=== PATIENT | male | born 1990 | race Hispanic/Latino ===

== ENCOUNTER 2019-09-23 21:47 | Emergency (ER) | payer OTHER, SELFPAY ==
[2019-09-23 22:02] VITALS: BP 168/94; PULSE 107; RESP 20; TEMP 36.9; O2SAT 99; BMI 33.3
[2019-09-24] MEDS: OXYCODONE/ACETAMINOPHEN 5/325 TABLET 2 TAB PO (00:58)
[2019-09-24] MEDS: OXYCODONE/APAP 5/325 PREPACK 1 BOTTLE MISC (00:58)
[2019-09-24 00:59] VITALS: BP 134/84; PULSE 94; RESP 16; TEMP 36.7; O2SAT 99
[2019-09-24] MEDS: dexAMETHasone 4 MG TABLET 10 MG PO (00:59)
[2019-09-24] MEDS: KETOROLAC 60 MG/2 ML VIAL 30 MG IM (00:59)
--- NOTE | 2019-09-24 06:51 | ED_ITS ---
HPI - Back Pain/Injury General Chief Complaint: Back Pain/Injury Stated Complaint: LOWER BACK PAIN Time Seen by Provider: 09/24/19 00:26 Source: patient History of Present Illness HPI Narrative: 29-year-old otherwise healthy gentleman who works for [employer]. A week and a half ago he strained his low back lifting twisting and bending with packages while at work. Seem that he was healing until yesterday when he went to step up onto a bench in the truck it was wet, he slipped and stretched groin and legs and pulling back muscles more. Over the ensuing 24 hours he is developing increasing pain across his low back and radicular symptoms down the right leg worse with movement. He describes no change to bowel or bladder habits and no difficulty with urinating. No perineal numbness. Related Data Previous Rx's Medication Instructions Recorded dexamethasone [Decadron] 10 mg PO DAILY #5 tab 09/24/19 oxycodone-acetaminophen 1 tab PO Q6H PRN #10 tab 09/24/19 Allergies Allergy/AdvReac Type Severity Reaction Status Date / Time No Known Drug Allergies Allergy Verified 09/23/19 22:09 Review of Systems Review of Systems Narrative: Pertinent positive and negative findings as per HPI Remainder of review of systems is otherwise unremarkable for Constitutional: Fevers, chills, weakness ENT: No sore throat, neck pain, ear pain CV: Chest pain, palpitations, dyspnea on exertion Respiratory: Cough, wheeze, dyspnea GI: Nausea, vomiting, diarrhea, : Dysuria, hematuria, flank pain Skin: Rashes, nonhealing lesions Neuro: Syncope, dizziness, tingling Psych: Depression, anxiety, suicidal ideation Patient History Medical History (Updated 09/24/19 @ 06:55 by Marlen Rosales MD) Healthy adult (Acute) Social History Smoking Status: Never smoker Smoking Status: Never smoker alcohol intake frequency: 0-2 drinks per day Substance Use Type: does not use Exam Narrative Exam Narrative: General: Healthy appearing, in in moderate amount of pain Able to give a complete and coherent history. Well-nourished well-developed Respiratory: Lungs are clear to auscultation, no wheezing no rales no rhonchi. Full and symmetrical air movement Cardiac: Regular rate and rhythm no murmurs no bruits Abdomen: Soft nontender good bowel tones, no flank pain Skin: Warm and dry, no rashes Neurologic: Grossly neurologically intact with no obvious asymmetries or abnormalities. He is able to get up and off the bed with minimal difficulty. He has decreased sensation in the entire right lower extremity from the groin down that is not in dermatomal distribution. Full and symmetrical strength in both lower extremities with normal reflexes (2+) bilateral patellas and ankle jerks. Extremities: No trauma, well perfused Psych: Cooperative, appropriate insight and affect Initial Vital Signs Initial Vital Signs: Vital Signs Temperature 98.4 F 09/23/19 22:02 Pulse Rate 107 H 09/23/19 22:02 Respiratory Rate 20 09/23/19 22:02 Blood Pressure 168/94 H 09/23/19 22:02 Pulse Oximetry 99 09/23/19 22:02 Course Orders Ordered: Discontinued Medications Dexamethasone (Decadron) 10 mg PO NOW ONE Stop: 09/24/19 00:49 Last Admin: 09/24/19 00:59 Dose: 10 mg Documented by: ADELINA Ketorolac Tromethamine (Toradol) 30 mg IM NOW ONE Stop: 09/24/19 00:49 Last Admin: 09/24/19 00:59 Dose: 30 mg Documented by: ADELINA Oxycodone/Acetaminophen (Endocet 5/325 Prepack) 1 bottle MISC SEEINSTR ONE Stop: 09/24/19 00:49 Last Admin: 09/24/19 00:58 Dose: 1 bottle Documented by: ADELINA Oxycodone/Acetaminophen (Percocet 5/325) 2 tab PO NOW ONE Stop: 09/24/19 00:49 Last Admin: 09/24/19 00:58 Dose: 2 tab Documented by: ADELINA Vital Signs Vital signs: Vital Signs - 8 hr 09/24/19 00:59 Temperature 98.1 F Pulse Rate 94 H Respiratory Rate 16 Blood Pressure [Left Arm] 134/84 Pulse Oximetry 99 MDM - Back Pain/Injury Medical Records Attestation: I reviewed the patient's medical records. Lab Data Labs: Urine Dip Bedside Urine Glucose Negative Bedside Urine Bilirubin - Negative Bedside Urine Ketone - Negative Urine Specific [place] 1.025 Bedside Urine Occult Blood - Negative Bedside Urine pH 6.5 Bedside Urine Protein - Negative Bedside Urine Urobilinogen - Negative Bedside Urine Nitrite - Negative Bedside Urine Leukocytes - Negative Esterase MDM Narrative Medical decision making narrative: 29-year-old gentleman with initial musculoskeletal back strain approximately 1 and half weeks ago suffered while at work. Seem to be recovering nicely we had an acute injury yesterday with worsening pain in the low back and now radicular pain down the back of his leg. No change to bowel or bladder habits or perineal numbness or other additional signs of cauda equina syndrome or acute disc pathology. Because his job consists of lifting bending and twisting have recommended 4 days of rest with gentle activity, nonsteroidals 3 days of steroids and a brief up to 48 hours of narcotic supplementation with nonsteroidal pain control. He is safe for home discharge at this time Discharge Plan Departure Patient Disposition: Home Clinical Impression: Strain of lumbar region Qualifiers: Encounter type: initial encounter Qualified Code(s): S39.012A - Strain of muscle, fascia and tendon of lower back, initial encounter Sciatica Qualifiers: Laterality: right Qualified Code(s): M54.31 - Sciatica, right side Discharge Date/Time: 09/24/19 01:26 Instructions: DI for Back Strain or Sprain Activity Restrictions/Additional Instructions: Thank you for coming in tonight I am sorry you injured yourself. In the emergency room, you are giving a shot of Toradol and to Percocet pain pills as well as 10 mg of oral Decadron, a steroid. I am going to suggest that you do not return to work for at least 4 more days, so returning on September 27. Please do make point of getting up and walking around however avoiding twisting, turning and bending for 4 days will help you heal a bit more quickly Using 400 mg of ibuprofen (2 hjwn-vrx-elitliu pills) and 1 Tylenol every 6 hours can be very helpful in controlling pain. For severe pain, you can use 400 mg of ibuprofen and 1 Percocet. I am also going to suggest that you complete 3 days of Decadron, steroid, to reduce the swelling and inflammation that is causing part of your pain and the numbness down your right leg. If you are continuing to have severe symptoms or you feel that they are getting worse, will need to follow-up with your primary care physician. I hope that you heal quickly and completely. Prescriptions: New dexamethasone [Decadron] 4 mg tablet 10 mg PO DAILY Qty: 5 RF: 0 oxycodone-acetaminophen 5-325 mg tablet 1 tab PO Q6H PRN (Reason: pain) Qty: 10 RF: 0 Stand Alone Forms: Work Release Note
== END 2019-09-24 01:26 | disposition home or self-care (01) ==
PROVIDERS: Emergency Provider Emergency Medicine
DX: S39.012A Strain of muscle, fascia and tendon of lower back, initial encounter (principal); M54.31 Sciatica, right side; X50.0XXA Overexertion from strenuous movement or load, initial encounter; Y99.0 Civilian activity done for income or pay
CPT/HCPCS: 81003; 96372; 99283; 99284; J1885

== ENCOUNTER 2021-03-01 21:46 | Emergency (ER) | payer OTHER, MEDICAID, SELFPAY ==
[2021-03-01 21:52] VITALS: BP 147/80; PULSE 118; RESP 20; TEMP 37.2; O2SAT 99
[2021-03-01 23:08] VITALS: BP 130/60; PULSE 101; O2SAT 97
[2021-03-02] MEDS: IBUPROFEN 400 MG TABLET PO (00:05)
[2021-03-02] MEDS: ACETAMINOPHEN 325 MG TABLET PO (00:05)
[2021-03-02 00:15] VITALS: BP 128/73; PULSE 90; RESP 18; O2SAT 99
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
== END 2021-03-02 00:15 | disposition home or self-care (01) ==
PROVIDERS: Emergency Provider Emergency Medicine
DX: S16.1XXA Strain of muscle, fascia and tendon at neck level, initial encounter (principal); S20.312A Abrasion of left front wall of thorax, initial encounter; V89.2XXA Person injured in unspecified motor-vehicle accident, traffic, initial encounter
CPT/HCPCS: 99282; 99283

== ENCOUNTER 2021-03-08 06:57 | Emergency (ER) | payer OTHER, MEDICAID, SELFPAY ==
[2021-03-08 07:42] VITALS: BP 133/73; PULSE 106; RESP 24; TEMP 36.8; O2SAT 99; BMI 31.9
[2021-03-08 07:56] LABS: Add Manual Diff / Slide Review NO; Basophils Absolute Auto 100 /uL (0-100); Basophils Percent Auto 0.7 % (0-2); Eosinophils Absolute Auto 0 /uL (0-450); Hematocrit 41.4 % (41-53); Hemoglobin 13.7 g/dL (13.5-17.5); Lymphocytes Absolute Auto 1000 /uL (1100-4500); Lymphocytes Percent Auto 13.4 % (25-40); Mean Corpuscular HGB Conc 33.1 % (30-36); Mean Corpuscular Hemoglobin 27.9 PG (26-34); Mean Corpuscular Volume 84.4 fL (80-100); Monocytes Absolute Auto 800 /uL (0-900); Monocytes Percent Auto 10.7 % (3-14); Neutrophils Absolute Auto 5800 /uL (1500-7000); Neutrophils Percent Auto 75.2 % (50-75); Platelet Count 266 X10^3/uL (150-400); Red Blood Cell Count 4.91 X10^6/uL (4.5-5.9); Red Cell Distribution Width 12.8 % (11.6-14.8); White Blood Cell Count 7.7 X10^3/uL (4.5-11.0)
[2021-03-08] MEDS: SODIUM CHLORIDE 0.9% 1,000 ML 250 ML IV (08:03)
[2021-03-08 08:04] VITALS: BP 131/75; PULSE 96; O2SAT 97
[2021-03-08 08:11] LABS: Alanine Aminotransferase 40 IU/L (<50); Albumin 4.6 g/dL (3.5-5.0); Albumin Globulin Ratio 1.4 (1.0-2.8); Alkaline Phosphatase 61 U/L (38-126); Aspartate Aminotransferase 39 IU/L (17-59); Bilirubin Total 0.3 mg/dL (0.2-1.3); Blood Urea Nitrogen 19 mg/dL (9-20); Calcium 9.2 mg/dL (8.4-10.2); Carbon Dioxide 27 mmol/L (22-32); Chloride 102 mmol/L (98-107); Estimated Glomerular Filt Rate > 60.0 mL/min (>60); Globulin 3.4 g/dL (1.7-4.1); Glucose 128 mg/dL (70-100); HEMOLYSIS < 15 (0-50); Lipase 46 U/L (23-300); Sodium 137 mmol/L (137-145)
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
[2021-03-08 08:33] VITALS: PULSE 95; O2SAT 98
[2021-03-08] MEDS: HYDROMORPHONE 1 MG INJ IV (08:57)
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
== END 2021-03-08 09:44 | disposition home or self-care (01) ==
PROVIDERS: Emergency Provider Emergency Medicine
DX: S30.1XXA Contusion of abdominal wall, initial encounter (principal); V89.2XXD Person injured in unspecified motor-vehicle accident, traffic, subsequent encounter
CPT/HCPCS: 36415; 71260; 74177; 80053; 81003; 83690; 85025; 86850; 86900; 86901; 96361; 96374; 99284; J1170